=== PATIENT | male | born 1960 | race African-American/Black ===

== ENCOUNTER 2025-02-02 11:32 | Emergency (ER) | payer MEDICAID ==
[~2025-02-02 11:32] MED LIST: AMLO10TA80 PO; DOCU-422 MT; LEVO-65 PO; METR-167 MT; OMEP20TA23 PO
[2025-02-02 11:45] VITALS: PULSE 79; RESP 18; O2SAT 100
== END 2025-02-02 12:10 | disposition left against medical advice (07) ==
LOC: ER 11:32
DX: R10.9 Unspecified abdominal pain (principal)
CPT/HCPCS: 99281